=== PATIENT | female | born 1965 | race Caucasian/White ===

== ENCOUNTER 2017-09-10 18:30 | Emergency (ER) | payer SELFPAY ==
[~2017-09-10] VITALS: Ht 165.1 cm; Wt 75.0 kg
[2017-09-10 18:40] VITALS: BP 124/62; PULSE 88; RESP 16; TEMP 99.4; O2SAT 97
[2017-09-10] MEDS ORDERED: BACT800T5 PO (21:47)
[2017-09-10] MEDS ORDERED: MUPI2%T TOPICAL (21:47)
[2017-09-10] MEDS ORDERED: CEPH-460 PO (21:47)
== END 2017-09-10 20:40 | disposition left against medical advice (07) ==
LOC: NED 18:30
DX: L98.9 Disorder of the skin and subcutaneous tissue, unspecified (principal); Z53.21 Procedure and treatment not carried out due to patient leaving prior to being seen by health care provider
CPT/HCPCS: 99281

== ENCOUNTER 2017-09-10 21:09 | Emergency (ER) | payer SELFPAY ==
[~2017-09-10] VITALS: Ht 165.1 cm; Wt 75.0 kg
[2017-09-10 21:21] VITALS: BP 153/68; PULSE 78; RESP 16; TEMP 98.3; O2SAT 96
[2017-09-10] MEDS ORDERED: CEPH-460 PO (21:47)
[2017-09-10] MEDS ORDERED: BACT800T5 PO (21:47)
[2017-09-10] MEDS ORDERED: MUPI2%T TOPICAL (21:47)
--- NOTE | 2017-09-10 21:51 | PD ---
HPI Chief Complaint: Skin Problem Time Seen by Provider: 21:39 Travel History International Travel<30 days: No Contact w/Intl Traveler<30days: No Traveled to known affect area: No History of Present Illness HPI This is a 51-year-old female who presents complaining of sores on the dorsum of both hands. Symptoms initially started 1 month ago. She reports that the sores have been oozing. They are painful, burning, constant, aggravated by palpation, no alleviating factors. She reports some pruritus as well. She reports that she is currently homeless and has had difficulty keeping them clean. She has been trying to wash them daily with hydrogen peroxide and keep them covered. She has no other complaints at this time. [facility] Past Medical History Tetanus Vaccination: Unknown ?: Not Tubal Ligation: Yes Past Surgical History Section: Yes (x1) Hysterectomy: Yes Social History Alcohol Use: Yes (occaisonally) Tobacco Use: Yes (1PPD cigars) Substance Use: No Allergies-Medications (Allergen,Severity, Reaction): Coded Allergies: codeine (Verified Allergy, Unknown, 09/10/17) Reported Meds & Prescriptions Reported Meds & Active Scripts Active Bactroban Topical (Mupirocin) 22 Gm Cream 1 Applic TOPICAL BID 10 Days Keflex (Cephalexin) 500 Mg Cap 500 Mg PO Q8H Bactrim DS (Sulfamethoxazole-Trimethoprim) 800-160 Mg Tab 1 Tab PO BID Review of Systems General / Constitutional: No: Fever, Chills Musculoskeletal: Positive: Pain Skin: Positive Rash, Positive Itching, Positive Other (Positive for pain) Neurologic: No: Paresthesia Physical Exam Narrative GENERAL: Well-developed well-nourished female no acute distress SKIN: Warm and dry. On the dorsum of both hands there is honey colored crusting lesions, some oozing HEAD: Atraumatic. Normocephalic. EYES: Pupils equal and round. No scleral icterus. No injection or drainage. ENT: No nasal bleeding or discharge. Mucous membranes pink and moist. NECK: Trachea midline. No JVD. CARDIOVASCULAR: Regular rate and rhythm. No murmur appreciated. RESPIRATORY: No accessory muscle use. Clear to auscultation. Breath sounds equal bilaterally. GASTROINTESTINAL: Abdomen soft, non-tender, nondistended. Hepatic and splenic margins not palpable. MUSCULOSKELETAL: No obvious deformities. No clubbing. No cyanosis. No edema. NEUROLOGICAL: Awake and alert. No obvious cranial nerve deficits. Motor grossly within normal limits. Normal speech. PSYCHIATRIC: Appropriate mood and affect; insight and judgment normal. Data Data Last Documented VS Vital Signs Date Time Temp Pulse Resp B/P (MAP) Pulse Ox O2 Delivery O2 Flow Rate FiO2 09/10/17 21:21 98.3 78 16 153/68 (96) 96 Orders Orders Sulfamet-Trimeth Ds 800-160 Mg (Bactrim (09/10/17 22:00) Cephalexin (Keflex) (09/10/17 22:00) Wound Care (09/10/17 21:46) Ed Discharge Order (09/10/17 21:46) Wound Culture And Gram Stain (09/10/17 21:51) [facility] Medical Decision Making Medical Screen Exam Complete: Yes Emergency Medical Condition: Yes Medical Record Reviewed: Yes Differential Diagnosis Impetigo, dyshidrotic eczema, bug bites, cellulitis Narrative Course A wound culture was performed. The patient will be treated with Bactrim, Keflex , Bactroban. Diagnosis Primary Impression: Impetigo Additional Instructions: Medication as prescribed. Wash twice a day with soap and water and apply antibiotic cream and clean bandages. Return for any acutely new or worsening symptoms. Med/Other Pt SpecificInfo: Prescription(s) given, Wound Care Scripts Mupirocin Topical (Bactroban Topical) 22 Gm Cream 1 APPLIC TOPICAL BID for Mgmt Bacterial Infection for 10 Days, #1 TUBE 0 Refills Prov: Katelin Bose DO 09/10/17 Cephalexin (Keflex) 500 Mg Cap 500 MG PO Q8H for Infection, #30 CAP 0 Refills Prov: Katelin Bose DO 09/10/17 Sulfamethoxazole-Trimethoprim (Bactrim DS) 800-160 Mg Tab 1 TAB PO BID for Infection, #20 TAB 0 Refills Prov: Katelin Bose DO 09/10/17 Disposition: 01 DISCHARGE HOME Condition: Stable Declan Weinstein Sep 10, 2017 21:51
[2017-09-10] MEDS ORDERED: CEPHALEXIN MONOHYDRATE 500 MG CAP PO ONE (22:00)
[2017-09-10] MEDS ORDERED: SULFAMETHOXAZOLE-TRIMETHOPRIM DS 800-160 MG TAB PO ONE (22:00)
== END 2017-09-10 22:24 | disposition home or self-care (01) ==
LOC: NEPD 21:09
DX: L01.00 Impetigo, unspecified (principal); B95.0 Streptococcus, group A, as the cause of diseases classified elsewhere; B95.61 Methicillin susceptible Staphylococcus aureus infection as the cause of diseases classified elsewhere; B96.89 Other specified bacterial agents as the cause of diseases classified elsewhere; Z59.0 Homelessness; F17.290 Nicotine dependence, other tobacco product, uncomplicated
CPT/HCPCS: 86403; 87070; 87077; 87186; 87205; 99283

== ENCOUNTER 2017-09-13 11:56 | Emergency (ER) | payer SELFPAY ==
[~2017-09-13] VITALS: Ht 165.1 cm; Wt 75.0 kg
[~2017-09-13 11:56] MED LIST: BACT800T5 PO; CEPH-460 PO; MUPI2%T TOPICAL
[2017-09-13 12:29] VITALS: BP 113/69; PULSE 61; RESP 18; TEMP 98; O2SAT 97
[2017-09-13] MEDS ORDERED: CEPH-460 PO (14:55)
[2017-09-13] MEDS ORDERED: MUPI2%T TOPICAL (14:55)
[2017-09-13] MEDS ORDERED: BACT800T5 PO (14:55)
--- NOTE | 2017-09-13 14:55 | PD ---
HPI Chief Complaint: Skin Problem Time Seen by Provider: 14:49 Travel History International Travel<30 days: No Contact w/Intl Traveler<30days: No Traveled to known affect area: No History of Present Illness HPI 51-year-old female with no significant medical history presents emergency department for evaluation. Patient states she was seen and evaluated 2 days ago and diagnosed with impetigo on her hands. Patient states she has had wounds there for several months but they have acutely gotten worse. She was ordered Bactrim, Keflex, mupirocin but she states she lost her prescriptions. She states she was then in [place] and she was unable to get here for 2 days. She denies any fever chills. Denies any significant pain. Denies any new exposures. She would simply like her prescriptions. PFSH Past Medical History Medical History: Denies Significant Hx ?: Not Tubal Ligation: Yes Past Surgical History Section: Yes (x1) Hysterectomy: Yes Social History Alcohol Use: Yes (occaisonally) Tobacco Use: Yes (1PPD cigars) Substance Use: No Allergies-Medications (Allergen,Severity, Reaction): Coded Allergies: codeine (Verified Allergy, Unknown, 09/10/17) Reported Meds & Prescriptions Reported Meds & Active Scripts Active Bactroban Topical (Mupirocin) 22 Gm Cream 1 Applic TOPICAL BID 10 Days Keflex (Cephalexin) 500 Mg Cap 500 Mg PO Q8H Bactrim DS (Sulfamethoxazole-Trimethoprim) 800-160 Mg Tab 1 Tab PO BID Review of Systems Except as stated in HPI: all other systems reviewed are Neg Physical Exam Narrative GENERAL: Unkempt female patient, ambulatory no acute distress. SKIN: Focused skin assessment warm/dry. There are well demarcated wounds on the dorsum of the hand, bhardwaj crusting, on the right hand the area extends 4 cm x 3 cm and on the left dorsal 2 cm x 4 cm. Erythema does not extend out from the wound. There is no induration or fluctuation. HEAD: Atraumatic. Normocephalic. EYES: Pupils equal and round. No scleral icterus. No injection or drainage. ENT: No nasal bleeding or discharge. Mucous membranes pink and moist. NECK: Trachea midline. No JVD. CARDIOVASCULAR: Regular rate and rhythm. No murmur appreciated. RESPIRATORY: No accessory muscle use. Clear to auscultation. Breath sounds equal bilaterally. MUSCULOSKELETAL: No obvious deformities. No clubbing. No cyanosis. No edema. NEUROLOGICAL: Awake and alert. No obvious cranial nerve deficits. Motor grossly within normal limits. Normal speech. Data Data Last Documented VS Vital Signs Date Time Temp Pulse Resp B/P (MAP) Pulse Ox O2 Delivery O2 Flow Rate FiO2 09/13/17 12:29 98.0 61 18 113/69 (84) 97 Orders Orders Wound Care (09/13/17 14:53) Ed Discharge Order (09/13/17 14:53) MDM Medical Decision Making Medical Screen Exam Complete: Yes Emergency Medical Condition: Yes Medical Record Reviewed: Yes Differential Diagnosis Impetigo versus contact dermatitis versus cellulitis Narrative Course 51-year-old female presents emergency department requesting medications for impetigo that she was diagnosed with 2 days ago. She states she has lost her prescriptions. Patient appears well. He well taking care of and appears to be healing. Patient will be given prescriptions. She is counseled on care and encouraged follow-up with primary care provider. She agrees to return immediately with any acute worsening symptoms. Diagnosis Primary Impression: Impetigo Referrals: Primary Care Physician Patient Instructions: Acute Wound Care (DC), General Instructions, Impetigo (ED ) Additional Instructions: Wash wounds with warm soapy water two times a day Start antibiotics today and take them until they are all gone Return to ED with acute worsening of symptoms Med/Other Pt SpecificInfo: Prescription(s) given Scripts Mupirocin Topical (Bactroban Topical) 22 Gm Cream 1 APPLIC TOPICAL BID for Mgmt Bacterial Infection for 10 Days, #1 TUBE 0 Refills Prov: Aylin Rice 09/13/17 Cephalexin (Keflex) 500 Mg Cap 500 MG PO Q8H for Infection, #30 CAP 0 Refills Prov: Aylin Rice 09/13/17 Sulfamethoxazole-Trimethoprim (Bactrim DS) 800-160 Mg Tab 1 TAB PO BID for Infection, #20 TAB 0 Refills Prov: Aylin Rice 09/13/17 Disposition: 01 DISCHARGE HOME Condition: Stable Aylin Rice Sep 13, 2017 14:55
== END 2017-09-13 15:09 | disposition home or self-care (01) ==
LOC: NEPE 11:56
DX: L01.00 Impetigo, unspecified (principal); F17.290 Nicotine dependence, other tobacco product, uncomplicated
CPT/HCPCS: 99283